=== PATIENT | female | born 1965 | race Caucasian/White ===

== ENCOUNTER 2023-01-14 15:05 | Outpatient (CLI) | payer BC | END 2023-01-14 15:06 | disposition home or self-care (01) | LOC: BICMRI 15:05 | PROVIDERS: ATTEND Anesthesiology Pain Medicine | DX: M51.16 Intervertebral disc disorders with radiculopathy, lumbar region (principal); M48.061 Spinal stenosis, lumbar region without neurogenic claudication | CPT/HCPCS: 72148 ==

== ENCOUNTER 2023-01-18 11:32 | Outpatient (CLI) | payer BC | END 2023-01-18 11:33 | disposition home or self-care (01) | LOC: RAD 11:32 | PROVIDERS: ATTEND Anesthesiology Pain Medicine | DX: M47.26 Other spondylosis with radiculopathy, lumbar region (principal); M43.8X6 Other specified deforming dorsopathies, lumbar region | CPT/HCPCS: 72120 ==